=== PATIENT | male | born 1980 | race Hispanic/Latino ===

== ENCOUNTER 2018-05-20 09:42 | Emergency (ER) | payer SELFPAY ==
[2018-05-20] MEDS ORDERED: Lidocaine 1% 20 ML MDV ONE (10:30)
[2018-05-20] MEDS ORDERED: Adacel (T-DAP) 0.5 ML VIAL ONE (11:10)
== END 2018-05-20 11:20 | disposition home or self-care (01) ==
LOC: NAV ERS 09:42
DX: S01.312A Laceration without foreign body of left ear, initial encounter (principal); Z23 Encounter for immunization; W45.8XXA Other foreign body or object entering through skin, initial encounter; Y99.0 Civilian activity done for income or pay
CPT/HCPCS: 12011; 90471; 90715; J2001